=== PATIENT | female | born 1970 | race Caucasian/White ===

== ENCOUNTER → 2018-01-29 | Outpatient (CLI) | payer BC ==
[~2018-01-29] MED LIST: LISI10TA PO; MULT-608 PO; OMEP-10 PO
== END ==
LOC: CARD 10:32
PROVIDERS: ATTEND Internal Medicine Interventional Cardiology
DX: R06.02 Shortness of breath (principal); R00.2 Palpitations; R07.9 Chest pain, unspecified
CPT/HCPCS: 93225; 93226; 93306

== ENCOUNTER → 2018-02-07 | Outpatient (CLI) | payer BC ==
[~2018-02-07] MED LIST changes: +REGADENOSON 0.4 MG/5 ML SYR (LEXISCAN) IV ONE
[2018-02-07] MEDS: CATHETER FLUSH 10 ML SYR IV PRN ×2 (07:46→09:09)
[2018-02-07 09:07] VITALS: BP 123/75
--- NOTE | 2018-02-07 18:14 | Cardiology Stress Test Report ---
Stress Test Report Type of NM Stress Test: Test Type: LEXISCAN 0.4MG/5ML Date of Procedure/Referring: Date of Procedure: Feb 07, 2018 PCP Joan Espino MD Admitting Physician Nancie Rueda MD Indications: Chest pain. Baseline Heart Rate: 90 Baseline Blood Pressure: Blood Pressure Systolic: 123 Blood Pressure Diastolic: 75 Baseline EKG: Baseline EKG: Sinus rhythm Summary & Conclusion: Summary: The patient was brought to the stress lab after informed consent was taken. Stress test was performed according to the Lexiscan protocol. 0.4 mg of IV Lexiscan was given. Low-grade exercise was performed. Baseline EKG showed sinus rhythm at 90 BPM. Initial blood pressure was 123/75 mmHg. Maximum heart rate was 132 bpm and blood pressure 147/73 mmHg. Patient did not have any chest pain, arrhythmias or ST segment changes during the stress test. 10.18 mCi of Myoview were given for rest imaging and 30 mCi of Myoview given for stress imaging. Transient ischemic dilatation score 1.04, EF 66 percent. Normal wall motion. Normal myocardial perfusion imaging during rest and stress. Conclusion: Pharmacological stress test was negative for ischemia. Normal LV function with no wall motion abnormalities. Normal myocardial perfusion imaging during rest and stress. Joan ESPINO MD Feb 07, 2018 18:14
== END ==
LOC: CARD 06:55
PROVIDERS: ATTEND Internal Medicine Interventional Cardiology
DX: R00.2 Palpitations (principal); R06.02 Shortness of breath; R07.9 Chest pain, unspecified; E78.5 Hyperlipidemia, unspecified; I10 Essential (primary) hypertension; E11.9 Type 2 diabetes mellitus without complications
CPT/HCPCS: 78452; 93017; 93270

== ENCOUNTER 2018-10-31 20:51 | Emergency (ER) | payer BC, OTHER ==
[~2018-10-31] VITALS: Ht 167.6 cm; Wt 139.7 kg
[~2018-10-31 20:51] MED LIST changes: -REGADENOSON 0.4 MG/5 ML SYR (LEXISCAN) IV ONE
--- OUTSIDE RECORDS SUMMARY | 2018-10-31 20:56 | XMS REPORT ---
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 Info Not Available Non Drug Allergy Problems Problem Type Condition Code Onset Dates Condition Status Assessment Encounter for PPD test Z11.1 Active Assessment Physical exam, pre-employment Z02.1 Active Medications Medication Code System Code Instructions Start Date End Date Status Dosage Lisinopril [facility] [address]-47 10 MG Orally Once a day 1 tablet Omeprazole [facility] [address]-61 40 MG Orally Once a day 1 capsule Tramadol HCl [facility] [address]-75 50 MG Orally every 6 hrs 1 tablet as needed Procedures Procedure Coding System Code Date DRUG SCREEN NON TLC DEVICES CPT-4 84339 May 12, 2015 Office Visit, Est Pt., Level 3 CPT-4 38057 May 12, 2015 TB INTRADERMAL TEST CPT-4 62772 May 12, 2015 Vital Signs Date/Time: May 12, 2015 Temperature 99.5 F Weight 345.1 lbs Height 66 in BMI 55.69 Index Blood Pressure Diastolic 84 mmHg Blood Pressure Systolic 130 mmHg Cardiac Monitoring Heart Rate 88 bpm Results Name Result Date Reference Range Unit Abnormality Flag URINE DRUG SCREEN (IN HOUSE) Summary Purpose [employer] Submission
--- OUTSIDE RECORDS SUMMARY | 2018-10-31 20:56 | XMS REPORT ---
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 Phone JEFFREY GRAFF CP Unavailable Allergies No Known Allergies Problems Problem Type Condition Code Onset Dates Condition Status Assessment Encounter for immunization Z23 Active Medications No Known Medications Procedures Procedure Coding System Code Date FLUARIX QUAD (3 & UP)-GSK-2014 CPT-4 80489 May 18, 2015 SINGLE IMMUNIZATION ADMIN CPT-4 70550 May 18, 2015 TDAP (BOOSTRIX) CPT-4 37386 May 18, 2015 IMMUNIZATION ADMIN, EACH ADD (please include units) CPT-4 46961 May 18, 2015 Results No Known Results Immunizations Vaccine Administration Date FLUARIX QUAD (3 & UP)-GSK-2014May 18, 2015 TDAP (BOOSTRIX) May 18, 2015 Summary Purpose [employer] Submission
--- OUTSIDE RECORDS SUMMARY | 2018-10-31 20:56 | XMS REPORT ---
Author Author JEFFREY GRAFF [facility] [employer] Address Unknown Phone Unavailable Care Team Providers Care Epilepsy Physician Name Role Phone JEFFREY GRAFF Unavailable Allergies No Known Allergies Problems Problem Type Condition Code Onset Dates Condition Status Assessment Encounter for immunization Z23 Active Medications No Known Medications Procedures Procedure Coding System Code Date SINGLE IMMUNIZATION ADMIN CPT-4 36747 Apr 20, 2016 FLUARIX QUAD P-FREE 3 AND UP .50 2015 CPT-4 91458 Apr 20, 2016 Results No Known Results Immunizations Vaccine Administration Date FLUARIX QUAD P-FREE 3 AND UP .50 2015Apr 20, 2016 Summary Purpose [employer] Submission
[2018-10-31] MEDS ORDERED: TOPI25TA10 (21:14)
[2018-10-31] MEDS ORDERED: ATOR40TA70 (21:14)
[2018-10-31] MEDS ORDERED: LIRA0.6P (21:14)
[2018-10-31] MEDS ORDERED: PRD20T PO (21:20)
--- NOTE | 2018-10-31 21:21 | ED Integumentary General ---
General Chief Complaint: Skin/Wound Problems Stated Complaint: POISON REBEKAH,POURED BLEACH ON IT AND HAVING REACTION Nursing Triage Note: Pt c/o poison rebekah on right that has persisted for 4-5 days. Pt poured undiluted bleach on rash [employer]ER and was concerned about having a bad reaction. Pt reports rash has worsened and arm has begun to swell. History of Present Illness Date Seen by Provider: Oct 31, 2018 Time Seen by Provider: 21:00 Initial Comments 47-year-old female presents for weakness in the right upper. She has not to her wrist and forearm. She was spritzing the area with rubbing alcohol and had no improvement, tonight she attempted to put bleach directly on the vesicles. She states the area became more erythema and swelling. She denies any respiratory difficulty. She rinsed her skin thoroughly with water [employer]. Timing/Duration: just prior to arrival Location: extremities (Right UE. ) Possible Cause: exposure to allergen Associated Symptoms: rash Allergies and Home Medications Allergies Coded Allergies: No Known Drug Allergies (Unverified , 05/05/11) Home Medications Lisinopril 10 Mg Tablet, 10 MG PO DAILY, (Reported) Multivitamins 1 Tab Tablet, 1 TAB PO DAILY, (Reported) Omeprazole 20 Mg Capsule.dr, 20 MG PO DAILY, (Reported) Prednisone 20 Mg Tab, 60 MG PO DAILY Prescribed by: TONEY OAKES on 10/31/182119 Patient Home Medication List Home Medication List Reviewed: Yes Review of Systems Review of Systems Constitutional: no symptoms reported, see HPI Skin: see HPI, rash All Other Systems Reviewed Negative Unless Noted: Yes Past [id number]-[id number] Hx Past Med/Social Hx: Reviewed Nursing Past Med/Soc Hx Patient Social History Alcohol Use: Occasionally Uses Recreational Drug Use: No Smoking Status: Current Everyday Smoker Type Used: Electronic/Vapor 2nd Hand Smoke Exposure: Yes Recent Foreign Travel: No Contact w/Someone Who Travel: No Recent Infectious Disease Expo: No Recent Hopitalizations: No Physical Abuse: No Sexual Abuse: No Mistreated: No Seasonal Allergies Seasonal Allergies: No Past Medical History Surgeries: Yes (R ankle, c4-5 fusion) Appendectomy, Oophorectomy, Orthopedic Respiratory: Yes Sleep Apnea Cardiac: Yes (MITRAL VALVE PROLAPSE) Hypertension Neurological: No Reproductive Disorders: No Sexually Transmitted Disease: No Genitourinary: No Gastrointestinal: Yes Diverticulosis Musculoskeletal: No Endocrine: Yes (pre-diabetes) Cancer: No Psychosocial: No Blood Disorders: No Adverse Reaction/Blood Tranf: No Physical Exam Vital Signs Vital Signs - First Documented 10/31/18 20:59 Temp 96.2 Pulse 96 Resp 16 B/P (MAP) 144/70 (94) Pulse Ox 98 O2 Delivery Room Air Capillary Refill : Less Than 3 Seconds General Appearance: WD/WN, no apparent distress Cardiovascular: normal peripheral pulses, regular rate, rhythm Respiratory: chest non-tender, lungs clear, normal breath sounds Neurologic/Psychiatric: alert, normal mood/affect, oriented x 3 Skin: normal color, warm/dry Skin Problem Location: upper extremities (right) Skin Problem Character: vesicular (small areas to right forearm and wrist) Lymphatic: no adenopathy Progress/Results/Core Measures Results/Orders My Orders Orders - TONEY OAKES Dexamethasone Injection (Decadron Inject (10/31/18 21:30) Hydrocortisone 1% Cream (Hydrocortisone (11/01/18 09:00) Diphenhydramine Tablet (Benadryl Tablet) (10/31/18 21:30) Famotidine Tablet (Pepcid Tablet) (10/31/18 21:30) Hydrocortisone 1% Cream (Hydrocortisone (10/31/18 21:20) Medications Given in ED Current Medications Medications Dose Ordered Sig/Charis Route Start Time Stop Time Status Last Admin Dose Admin Dexamethasone Sodium Phosphate 10 mg ONCE ONCE IM 10/31/18 21:30 10/31/18 21:31 DC 10/31/18 21:27 10 MG Diphenhydramine HCl 25 mg ONCE ONCE PO 10/31/18 21:30 10/31/18 21:31 DC 10/31/18 21:25 25 MG Famotidine 20 mg ONCE ONCE PO 10/31/18 21:30 10/31/18 21:31 DC 10/31/18 21:25 20 MG Vital Signs/I&O 10/31/18 10/31/18 20:59 21:35 Temp 96.2 96.2 Pulse 96 96 Resp 16 16 B/P (MAP) 144/70 (94) 144/70 (94) Pulse Ox 98 98 O2 Delivery Room Air Room Air Blood Pressure Mean: 94 Departure Impression Primary Impression: Contact dermatitis due to poison rebekah Disposition: 01 HOME, SELF-CARE Condition: Improved Departure-Patient Inst. Decision time for Depature: 21:20 Referrals: KEL MARTINS MD (PCP/Family) Primary Care Physician Patient Instructions: Poison Rebekah, Poison Dexter, Poison [place] (DC) Add. Discharge Instructions: Keep area dry. Apply hydrocortisone 3-4 times daily. Takes Zyrtec 1 tablet Take Benadryl 25 mg one tablet every 8 hours. Take Pepcid 20 mg one tablet twice daily. Take prednisone as directed. Follow-up with your primary care provider if symptoms are not improving or worsen. Return to emergency department for new, urgent health care needs. All discharge instructions reviewed with patient and/or family. Voiced understanding. Scripts Prednisone (Prednisone) 20 Mg Tab 60 MG PO DAILY, #9 TAB 0 Refills Prov: TONEY OAKES 10/31/18 TONEY OAKES Oct 31, 2018 21:21
[2018-10-31] MEDS: diphenhydrAMINE 25 MG TAB (BENADRYL) PO ONE (21:25)
[2018-10-31] MEDS: HYDROCORTISONE 1% CREAM 30 GM TUBE TOP SCH (21:25)
[2018-10-31] MEDS: FAMOTIDINE 20 MG (PEPCID) TABLET PO ONE (21:25)
[2018-10-31] MEDS: DEXAMETHASONE 10 MG/ML (DECADRON) 1 ML VIAL IM ONE (21:27)
[2018-10-31] MEDS: HYDROCORTISONE 1% CREAM 30 GM TUBE ONE (21:34)
[2018-10-31 21:35] VITALS: BP 144/70
== END 2018-10-31 21:35 | disposition home or self-care (01) ==
LOC: EDUNIT# 20:51 → ER 20:52
DX: L23.7 Allergic contact dermatitis due to plants, except food (principal); G47.30 Sleep apnea, unspecified; I10 Essential (primary) hypertension; F17.290 Nicotine dependence, other tobacco product, uncomplicated; Z87.19 Personal history of other diseases of the digestive system; Z79.52 Long term (current) use of systemic steroids; Z98.1 Arthrodesis status; Z90.49 Acquired absence of other specified parts of digestive tract
CPT/HCPCS: 99284